=== PATIENT | female | born 1960 | race American Indian/Alaskan Native ===

== ENCOUNTER 2020-06-13 17:44 | Emergency (ER) | payer OTHER, MEDICARE ==
[2020-06-13] MEDS ORDERED: ASPIRIN 325 MG TAB PO ONE (18:22)
--- NOTE | 2020-06-13 18:22 | Event Note ---
ED Screening Note ED Screening Note: left sided CP that began this morning feels like a pressure no radiation of the pain no n/v no diaphoresis states her left arm has been aching for a month no sob, no cough, no fever PMHx herniated disc, arthritis, HTN she took herself off of her blood pressure medication non smoker This initial assessment/diagnostic orders/clinical plan/treatment(s) is/are subject to change based on patients health status, clinical progression and re- assessment by fellow clinical providers in the ED. Further treatment and workup at subsequent clinical providers discretion. Patient/guardian urged not to elope from the ED as their condition may be serious if not clinically assessed and managed. Initial orders include: CP protocol
[2020-06-13 18:45] LABS: Basophils # (Auto) 0.1 K/mm3 (0.0-0.1); Basophils % (Auto) 1.1 % (0.0-1.8); Eosinophils # (Auto) 0.1 K/mm3 (0.0-0.4); Eosinophils % (Auto) 1.7 % (0.0-4.3); Hematocrit 41.8 % (30.3-42.9); Hemoglobin 13.9 gm/dl (10.1-14.3); Lymphocytes # (Auto) 3.3 K/mm3 (1.2-5.4); Lymphocytes % (Auto) 43.5 % (13.4-35.0); Mean Corpuscular HGB Conc 33 % (30-34); Mean Corpuscular Volume 83 fl (79-97); Monocytes # (Auto) 0.5 K/mm3 (0.0-0.8); Monocytes % (Auto) 6.9 % (0.0-7.3); Platelet Count 373 K/mm3 (140-440); Red Blood Count 5.06 M/mm3 (3.65-5.03); Red Cell Distribution Width 15.4 % (13.2-15.2)
[2020-06-13 19:04] LABS: Alanine Aminotransferase 10 units/L (7-56); Albumin 4.4 g/dL (3.9-5); BUN/Creatinine Ratio 15; Blood Urea Nitrogen 12 mg/dL (7-17); Hemolysis Index 2
--- NOTE | 2020-06-13 19:08 | XRay Report ---
Chest 2 views INDICATION: Chest pain IMPRESSION: The heart is normal. The lungs are clear. No pleural effusion. Signer Name: Shawn Davey MD Signed: 06/13/2020 7:04 PM Workstation Name: [id number]
[2020-06-13 19:15] LABS: Bacteria,Urine 1+ /HPF (Negative); Bilirubin,Urine NEG (Negative); Blood,Urine NEG (Negative); Color,Urine Straw (Yellow); Protein,Urine <15 mg/dL mg/dL (Negative); Urobilinogen,Urine < 2.0 mg/dL (<2.0)
--- NOTE | 2020-06-13 21:20 | Emergency Department Report ---
ED Chest Pain HPI - General Chief Complaint: Chest Pain Stated Complaint: CHEST PAIN PUI?: No Time Seen by Provider: 06/13/20 18:20 Source: patient, RN notes reviewed Mode of arrival: Ambulatory Limitations: No Limitations - History of Present Illness Initial Comments: The patient was evaluated in the emergency department for symptoms described in the history of present illness. He/she was evaluated in the context of the [facility] COVID-19 pandemic, which necessitated consideration that the patient might be at risk for infection with the virus that causes COVID-19. Institutional protocols and algorithms that pertain to the evaluation of patients at risk for COVID-19 are in a state of rapid change based on information released by regulatory bodies including the CDC and federal and state organizations. These policies and algorithms were followed during the patient's care in the emergency department. Please note that these policies, procedures and recommendations changed on a rapid basis. Primary care doctor: Atif hernandez During the history and physical examination, I am chaperoned by nurse Kimberli Karimi The patient is a 60-year-old female, with a history of hypertension, chronic arthritic pain, and is left-hand dominant. She is not known to myself previously. She presents to the ER with a complaint of nontraumatic left-sided chest and breast wall pain, which has been present since 9:00 this morning. The pain does not radiate to the back, arms or neck. There is no vomiting, diaphoresis or exertional shortness of breath. There is no leg pain or leg swelling, no travel, no surgery, no oral contraceptive use, and no DVT or pulmonary embolism risk factors. Patient denies personal family history of DVT, pulmonary embolism, cardiac disease, as well as family history of the above. Her chest wall pain is intermittent, and increases with palpation and decreases with rest, and appears to follow the circumference of her brassiere. Complaint: chest pain -: Gradual, hour(s) Onset: during rest Pain Location: other (Left-sided chest wall/inframammary crease) Pain Radiation: none Severity: moderate Quality: aching Consistency: intermittent Improves With: rest Worsens With: palpation re: denies: nausea, vomting, diaphoresis, dyspnea, sense of impending doom Other Symptoms: denies: cough, fever, syncope, rash, acid taste in mouth, leg swelling, palpitations, burping Treatments Prior to Arrival: none Aspirin use within the Past 7 Days: (0) No - Related Data On Oral Contraceptives: No Allergies Allergy/AdvReac Type Severity Reaction Status Date / Time No Known Allergies Allergy Unverified 06/13/20 17:51 Heart Score - HEART Score History: Slightly suspicious EKG: Non-specific Age: 45-65 Risk factors: 1-2 risk factors Troponin: < normal limit HEART Score: 3 - Critical Actions Critical Actions: 0-3 pts:0.9-1.7%risk of adverse cardiac event.Candidate for discharge ED Review of Systems ROS: Stated complaint: CHEST PAIN Other details as noted in HPI Constitutional: other (Denies loss of taste and smell). denies: fever, malaise, weakness Eyes: denies: eye discharge ENT: denies: epistaxis Respiratory: denies: shortness of breath Cardiovascular: chest pain (Left chest wall pain) Gastrointestinal: denies: nausea, vomiting, hematemesis, melena, hematochezia Genitourinary: denies: dysuria Musculoskeletal: as per HPI (Chronic musculoskeletal pain), myalgia Neurological: denies: weakness Hematological/Lymphatic: denies: easy bleeding ED Past Medical Hx - Past Medical History Previous Medical History?: Yes Additional medical history: chronic back pain. ED Physical Exam - General Limitations: No Limitations General appearance: alert, in no apparent distress - Head Head exam: Present: atraumatic, normocephalic - Eye Eye exam: Present: normal appearance, EOMI. Absent: nystagmus - ENT ENT exam: Present: normal exam, normal orophraynx, mucous membranes moist, normal external ear exam - Neck Neck exam: Present: normal inspection, full ROM. Absent: tenderness, meningismus - Respiratory Respiratory exam: Present: normal lung sounds bilaterally, chest wall te nderness. Absent: respiratory distress, wheezes, rales, rhonchi, stridor - Cardiovascular Cardiovascular Exam: Present: regular rate, normal rhythm, normal heart sounds. Absent: bradycardia, tachycardia, irregular rhythm, systolic murmur, diastolic murmur, rubs, gallop - GI/Abdominal GI/Abdominal exam: Present: soft. Absent: distended, tenderness, guarding, rebound, rigid, pulsatile mass - Extremities Exam Extremities exam: Present: normal inspection, full ROM, other (2+ pulses noted in the bilateral upper and lower extremities. There is no palpable cord. negative Homans sign. Muscular compartments are soft. The pelvis is stable.). Absent: pedal edema, calf tenderness - Back Exam Back exam: Present: normal inspection, full ROM. Absent: tenderness, CVA tenderness (R), CVA tenderness (L), paraspinal tenderness, vertebral tenderness - Neurological Exam Neurological exam: Present: alert, normal gait, other (No facial droop. Tongue midline. Extraocular movements intact bilaterally. Facial sensation intact to light touch in V1, V2, V3 distribution bilaterally. 5 and a 5 strength in 4 extremities. Sensation intact to light touch in 4 extremities.). Absent: motor sensory deficit - Psychiatric Psychiatric exam: Present: normal affect, normal mood - Skin Skin exam: Present: warm, dry, intact, normal color. Absent: rash ED Course Vital Signs 06/13/20 06/13/20 17:52 22:19 Temperature 98.8 F 97.9 F Pulse Rate 75 65 Respiratory 16 15 Rate Blood Pressure 164/89 146/82 [Right] O2 Sat by Pulse 98 99 Oximetry ROBIN score - Robin Score Age > 65: (0) No Aspirin use within the Past 7 Days: (0) No 3 or more CAD Risk Factors: (0) No 2 or more Angina events in past 24 hrs: (0) No Known CAD with more than 50% Stenosis: (0) No Elevated Cardiac Markers: (0) No ST Deviation Greater than 0.5mm: (0) No ROBIN Score: 0 ED Medical Decision Making - Lab Data Result diagrams: 06/13/20 18:26 06/13/20 18:26 Vital Signs 06/13/20 06/13/20 17:52 22:19 Temperature 98.8 F 97.9 F Pulse Rate 75 65 Respiratory 16 15 Rate Blood Pressure 164/89 146/82 [Right] O2 Sat by Pulse 98 99 Oximetry Lab Results 06/13/20 06/13/20 06/13/20 Range/Units 18:26 18:26 18:49 WBC 7.5 (4.5-11.0) K/mm3 RBC 5.06 H (3.65-5.03) M/mm3 Hgb 13.9 (10.1-14.3) gm/dl Hct 41.8 (30.3-42.9) % MCV 83 (79-97) fl MCH 27 L (28-32) pg MCHC 33 (30-34) % RDW 15.4 H (13.2-15.2) % Plt Count 373 (140-440) K/mm3 Lymph % (Auto) 43.5 H (13.4-35.0) % [place] % (Auto) 6.9 (0.0-7.3) % Eos % (Auto) 1.7 (0.0-4.3) % Baso % (Auto) 1.1 (0.0-1.8) % Lymph # (Auto) 3.3 (1.2-5.4) K/mm3 [place] # (Auto) 0.5 (0.0-0.8) K/mm3 Eos # (Auto) 0.1 (0.0-0.4) K/mm3 Baso # (Auto) 0.1 (0.0-0.1) K/mm3 Seg Neutrophils % 46.8 (40.0-70.0) % Seg Neutrophils # 3.5 (1.8-7.7) K/mm3 Sodium 141 (137-145) mmol/L Potassium 4.1 (3.6-5.0) mmol/L Chloride 102.0 (98-107) mmol/L Carbon Dioxide 30 (22-30) mmol/L Anion Gap 13 mmol/L BUN 12 (7-17) mg/dL Creatinine 0.8 (0.6-1.2) mg/dL Estimated GFR > 60 ml/min BUN/Creatinine Ratio 15 % Glucose 93 (65-100) mg/dL Calcium 10.0 (8.4-10.2) mg/dL Magnesium (1.7-2.3) mg/dL Total Bilirubin 0.30 (0.1-1.2) mg/dL AST 19 (5-40) units/L ALT 10 (7-56) units/L Alkaline Phosphatase 76 (35-129) units/L Total Creatine Kinase (30-135) units/L Troponin T < 0.010 (0.00-0.029) ng/mL Total Protein 6.9 (6.3-8.2) g/dL Albumin 4.4 (3.9-5) g/dL Albumin/Globulin Ratio 1.8 % Urine Color Straw (Yellow) Urine Turbidity Clear (Clear) Urine pH 6.0 (5.0-7.0) Ur Specific [place] 1.004 (1.003-1.030) Urine Protein <15 mg/dl (Negative) mg/dL Urine Glucose (UA) Neg (Negative) mg/dL Urine Ketones Neg (Negative) mg/dL Urine Blood Neg (Negative) Urine Nitrite Neg (Negative) Urine Bilirubin Neg (Negative) Urine Urobilinogen < 2.0 (<2.0) mg/dL Ur Leukocyte Esterase Neg (Negative) Urine WBC (Auto) 1.0 (0.0-6.0) /HPF Urine RBC (Auto) 1.0 (0.0-6.0) /HPF U Epithel Cells (Auto) 1.0 (0-13.0) /HPF Urine Bacteria (Auto) 1+ (Negative) /HPF 06/13/20 06/13/20 Range/Units 21:28 21:33 WBC (4.5-11.0) K/mm3 RBC (3.65-5.03) M/mm3 Hgb (10.1-14.3) gm/dl Hct (30.3-42.9) % MCV (79-97) fl MCH (28-32) pg MCHC (30-34) % RDW (13.2-15.2) % Plt Count (140-440) K/mm3 Lymph % (Auto) (13.4-35.0) % [place] % (Auto) (0.0-7.3) % Eos % (Auto) (0.0-4.3) % Baso % (Auto) (0.0-1.8) % Lymph # (Auto) (1.2-5.4) K/mm3 [place] # (Auto) (0.0-0.8) K/mm3 Eos # (Auto) (0.0-0.4) K/mm3 Baso # (Auto) (0.0-0.1) K/mm3 Seg Neutrophils % (40.0-70.0) % Seg Neutrophils # (1.8-7.7) K/mm3 Sodium (137-145) mmol/L Potassium (3.6-5.0) mmol/L Chloride (98-107) mmol/L Carbon Dioxide (22-30) mmol/L Anion Gap mmol/L BUN (7-17) mg/dL Creatinine (0.6-1.2) mg/dL Estimated GFR ml/min BUN/Creatinine Ratio % Glucose (65-100) mg/dL Calcium (8.4-10.2) mg/dL Magnesium 2.40 H (1.7-2.3) mg/dL Total Bilirubin (0.1-1.2) mg/dL AST (5-40) units/L ALT (7-56) units/L Alkaline Phosphatase (35-129) units/L Total Creatine Kinase 86 (30-135) units/L Troponin T < 0.010 (0.00-0.029) ng/mL Total Protein (6.3-8.2) g/dL Albumin (3.9-5) g/dL Albumin/Globulin Ratio % Urine Color (Yellow) Urine Turbidity (Clear) Urine pH (5.0-7.0) Ur Specific [place] (1.003-1.030) Urine Protein (Negative) mg/dL Urine Glucose (UA) (Negative) mg/dL Urine Ketones (Negative) mg/dL Urine Blood (Negative) Urine Nitrite (Negative) Urine Bilirubin (Negative) Urine Urobilinogen (<2.0) mg/dL Ur Leukocyte Esterase (Negative) Urine WBC (Auto) (0.0-6.0) /HPF Urine RBC (Auto) (0.0-6.0) /HPF U Epithel Cells (Auto) (0-13.0) /HPF Urine Bacteria (Auto) (Negative) /HPF - EKG Data -: EKG Interpreted by Sd EKG shows normal: sinus rhythm Rate: normal - EKG Data When compared to previous EKG there are: previous EKG unavailable 06/13/20 22:32 EKG #1, time of interpretation, 17: 54 Sinus rhythm, 73 bpm, left axis deviation, LAFB, left ventricular hypertrophy, poor R wave progression. Abnormal EKG. Not a STEMI. No prior for comparison. QTC prolonged, 485 ms. EKG #2, unchanged from prior, time of interpretation, 22: 14 - Radiology Data Radiology results: pending, report reviewed, image reviewed Chest 2 views INDICATION: Chest pain IMPRESSION: The heart is normal. The lungs are clear. No pleural effusion. Signer Name: Shawn Davey MD Signed: 06/13/2020 6:04 PM Workstation Name: [id number] - Medical Decision Making Differential diagnosis, including but not limited to: Costochondritis, GERD, gastritis, hiatal hernia, pneumonia Assessment and plan: 60-year-old female, who is not currently tachycardic, tachypneic or hypoxic, who denies DVT and pulmonary embolism risk factors, who is low risk by Wells criteria for pulmonary embolism, EKG unchanged x2, troponin negative x 2, symptoms present for approximately 1 day. Patient has equal pulses in the upper and lower extremities, no pulsatile abdominal mass, and an unremarkable x-ray of the chest, therefore, aortic disease is very unlikely. Patient at low risk for major adverse cardiac event as per heart score. Given reproducibility, history and physical, do not have a high suspicion for GERD, gastritis, hiatal hernia at this time. Pneumonia is unlikely given history, physical, and x-ray findings. I find coronary artery disease of significance to be unlikely. Have contacted [facility] physician, Dr. Duarte, and discussed the patient's history, physical, laboratory studies, EKG findings, and heart score. Patient set up for cardiology follow-up appointment for tomorrow morning, June 14, 2020, 9:40 AM, with Dr. Fonseca at the [facility]. On multiple reassessments, patient resting comfortably in stretcher, playing on a cellular phone, does not appear to be in any acute distress, and she felt improved after appropriate medication was administered for her chest wall pain. Patient has articulated understanding regarding the importance of close follow-up tomorrow to complete her outpatient cardiac risk ratification. I find the patient to be low risk for major adverse cardiac event as per heart score, and she has close outpatient follow-up established and set up for her, to set up and complete a cardiac risk ratification. Critical care attestation.: If time is entered above; I have spent that time in minutes in the direct care of this critically ill patient, excluding procedure time. ED Disposition Clinical Impression: Chest wall pain Disposition: DC-01 TO HOME OR SELFCARE Is pt being admited?: No Does the pt Need Aspirin: No Condition: Good Instructions: Chest Wall Pain, [id number], Nonspecific Chest Pain, Adult, Chest Pain (ED) Additional Instructions: Patient has a cardiology appointment tomorrow, June 14, 2020, 9:40 AM, with Dr. Fonseca, [facility] [place] It is very important that patient not miss this appointment. Patient may take [id number] ibuprofen, 400 mg by mouth, with food, every 6 hours as needed for pain,, alternating with Tylenol, acetaminophen, 650 mg by mouth, every 4-6 hours as needed for pain, maximum daily dose do not exceed 3 g per 24 hours. Please take a baby aspirin [id number]. Please return to the emergency room right away with new pain, worsened pain, migration of pain, projectile vomiting, change in mental status, confusion, inability to tolerate liquid feeds, and please make certain to follow-up with your appointment tomorrow, or with any of the listed icer hand within the next 3 days. Referrals: CYNDY TAY MD [Staff Physician] - 3-5 Days [facility] [Provider Group] - 3-5 Days
[2020-06-13] MEDS ORDERED: IBUPROFEN 400 MG TAB PO ONE (21:28)
[2020-06-13] MEDS ORDERED: ACETAMINOPHEN 325 MG TAB PO ONE (21:28)
[2020-06-13 22:20] VITALS: BP 146/82
== END 2020-06-13 23:00 | disposition home or self-care (01) ==
LOC: ED 17:44
DX: R07.89 Other chest pain (principal); Z79.899 Other long term (current) drug therapy
CPT/HCPCS: 36415; 71046; 80053; 81001; 82550; 83735; 84484; 85025; 93005

== ENCOUNTER 2020-11-22 09:06 | Outpatient (CLI) | payer OTHER ==
--- NOTE | 2020-11-22 10:00 | XRay Report ---
Lumbar spine 3 views INDICATION: Back pain FINDINGS: Alignment appears normal. Mild facet changes at L4-L5 and L5-S1. No compression fractures s een. Sacrum appears normal. Signer Name: Calos Gary MD Signed: 11/22/2020 9:56 AM Workstation Name: [id number]
== END 2020-11-22 09:07 | disposition home or self-care (01) ==
LOC: XRAY 09:06
PROVIDERS: ATTEND Internal Medicine
DX: M47.817 Spondylosis without myelopathy or radiculopathy, lumbosacral region (principal)
CPT/HCPCS: 72100